=== PATIENT | female | born 1970 | race Caucasian/White ===

== ENCOUNTER → 2017-07-21 | Outpatient (CLI) | payer OTHER ==
[2006-03-26 11:45] VITALS: TEMP 97.8
== END ==
LOC: MC.RAD 13:54
DX: Z12.31 Encounter for screening mammogram for malignant neoplasm of breast (principal); N63.21 Unspecified lump in the left breast, upper outer quadrant

== ENCOUNTER → 2017-08-13 | Outpatient (CLI) | payer OTHER ==
[2006-03-26 11:45] VITALS: TEMP 97.8
== END ==
LOC: MC.RAD 13:30
DX: N60.12 Diffuse cystic mastopathy of left breast (principal)

== ENCOUNTER → 2018-08-14 | Outpatient (CLI) | payer BC ==
[2006-03-26 11:45] VITALS: TEMP 97.8
== END ==
LOC: MC.RAD 08:00
DX: Z12.31 Encounter for screening mammogram for malignant neoplasm of breast (principal); N63.20 Unspecified lump in the left breast, unspecified quadrant; N64.89 Other specified disorders of breast

== ENCOUNTER → 2018-08-24 | Outpatient (CLI) | payer BC ==
[2006-03-26 11:45] VITALS: TEMP 97.8
== END ==
LOC: MC.RAD 09:56
DX: N60.01 Solitary cyst of right breast (principal); N60.02 Solitary cyst of left breast; N64.89 Other specified disorders of breast

== ENCOUNTER → 2020-02-10 | Outpatient (CLI) | payer BC ==
[2006-03-26 11:45] VITALS: TEMP 97.8
== END ==
LOC: MC.RAD 16:26
DX: Z12.31 Encounter for screening mammogram for malignant neoplasm of breast (principal)

== ENCOUNTER → 2020-03-14 | Outpatient (CLI) | payer BC ==
[2006-03-26 11:45] VITALS: TEMP 97.8
== END ==
LOC: COL.RAD 13:08
DX: M19.012 Primary osteoarthritis, left shoulder (principal); M89.312 Hypertrophy of bone, left shoulder
CPT/HCPCS: A9585; Q9967

== ENCOUNTER 2020-05-12 14:30 | Outpatient (RCR) | payer BC ==
[2006-03-26 11:45] VITALS: TEMP 97.8
== END 2020-05-29 | disposition home or self-care (01) ==
LOC: MKS.ESL.PT
DX: M25.512 Pain in left shoulder (principal)

== ENCOUNTER → 2021-06-15 | Outpatient (CLI) | payer BC ==
[2006-03-26 11:45] VITALS: TEMP 97.8
== END ==
LOC: MC.RAD 08:45
DX: N60.02 Solitary cyst of left breast (principal); N60.11 Diffuse cystic mastopathy of right breast

== ENCOUNTER → 2021-07-03 | Outpatient (CLI) | payer BC ==
[2006-03-26 11:45] VITALS: TEMP 97.8
== END ==
LOC: MC.RAD 07:50
DX: N60.02 Solitary cyst of left breast (principal)